=== PATIENT | female | born 1970 | race Caucasian/White ===

== ENCOUNTER 2017-01-22 12:30 | Observation (INO) | payer OTHER ==
[2017-01-22] VITALS (7 sets, daily range): BP systolic 138–159; BP diastolic 94–112; PULSE 79–84; RESP 16; TEMP 98; O2SAT 98–100
[~2017-01-22] VITALS: Ht 165.1 cm; Wt 98.6 kg
[~2017-01-22 12:30] MED LIST: LACTATED RINGER'S 1000 ML INJ 1,000 ML IV ONE; NEOSTIGMINE 3 MG/3 ML SYR IV ONE; ONDANSETRON HCL 4 MG/2 ML VIAL IV PUSH ONE; PROPOFOL 200 MG/20 ML AMP IV ONE
[2017-01-22 12:58] LABS: BLOOD, URINE LARGE (NEG); GLUCOSE,URINE NEG (NEG); KETONE, URINE NEG (NEG); NITRITE,URINE NEG (NEG)
[2017-01-22 13:01] LABS: METHOD OF COLLECTION CLEAN CATCH; URINE COLOR STRAW (YELLW/STRAW)
[2017-01-22 13:03] LABS: BACTERIA, URINE MOD /hpf; COMMENT (UR) CULTURE INDICATED; CULTURE IF INDICATED CULTURE INDICATED; SQUAMOUS EPITHELIAL CELL URINE > 8 /hpf (0-5); WBC, URINE 0-2 /hpf (0-5)
[2017-01-22] MEDS ORDERED: ONDANSETRON HCL 4 MG/2 ML VIAL IVP ONE (16:45)
[2017-01-22] MEDS ORDERED: SODIUM CHLOR 0.9% 1000 ML INJ 1,000 ML IV SCH (16:45)
[2017-01-22] MEDS ORDERED: MORPHINE SULFATE 4 MG/ML INJ IV PUSH ONE (16:45)
--- NOTE | 2017-01-22 16:50 | PD ---
HPI Chief Complaint: Abdominal Pain Time Seen by Provider: 16:39 Travel History International Travel<30 days: No Contact w/Intl Traveler<30days: No Traveled to known affect area: No History of Present Illness HPI 46yo F with PMH of left nephrectomy (kidney donation), presents to the ED with c/o RLQ abdominal pain since last night. States pain is constant, nonradiating, and throbbing. Pt had nonbloody diarrhea last night. +Nausea. Denies any fever, vomiting, chest pain, sob, vaginal discharge, dysuria, hematuria. Pt states her normal menstrual period started today. Last ate/ drank at 9am this morning. PFSH Past Medical History Medical History: Denies Significant Hx ?: Not LMP: 01/23/2016 Tubal Ligation: Yes Past Surgical History Section: Yes Genitourinary Surgery: Yes (DONATED LEFT KIDNEY) Social History Alcohol Use: Yes (WEEKENDS) Tobacco Use: No Allergies-Medications (Allergen,Severity, Reaction): Coded Allergies: No Known Allergies (Unverified , 01/22/17) Reported Meds & Prescriptions Reported Meds & Active Scripts Active No Active Prescriptions or Reported Medications Review of Systems Except as stated in HPI: all other systems reviewed are Neg Physical Exam Narrative GENERAL: 46yo F not in distress. SKIN: Warm and dry. HEAD: Atraumatic. Normocephalic. EYES: Pupils equal and round. No scleral icterus. No injection or drainage. ENT: No nasal bleeding or discharge. Mucous membranes pink and moist. NECK: Trachea midline. No JVD. CARDIOVASCULAR: Regular rate and rhythm. No murmur appreciated. RESPIRATORY: No accessory muscle use. Clear to auscultation. Breath sounds equal bilaterally. GASTROINTESTINAL: Abdomen soft, +TTP RLQ > RUQ. No rebound tenderness or guarding. PELVIC: +Blood in vaginal vault. No discharge. No CMT or adnexal tenderness bilaterally. BACK: No CVA tenderness bilaterally. MUSCULOSKELETAL: No obvious deformities. No clubbing. No cyanosis. No edema. NEUROLOGICAL: Awake and alert. No obvious cranial nerve deficits. Motor grossly within normal limits. Normal speech. PSYCHIATRIC: Appropriate mood and affect; insight and judgment normal. Data Data Last Documented VS Vital Signs Date Time Temp Pulse Resp B/P Pulse Ox O2 Delivery O2 Flow Rate FiO2 01/22/17 18:15 81 16 138/95 3/13/17 17:41 99 Room Air 01/22/17 12:34 98.0 Orders Urinalysis - C+S If Indicated (01/22/17 12:36) Urine Culture (01/22/17 12:40) Basic Metabolic Panel (Bmp) (01/22/17 16:45) Complete Blood Count With Diff (01/22/17 16:45) Lipase (01/22/17 16:45) Prothrombin Time / Inr (Pt) (01/22/17 16:45) Act Partial Throm Time (Ptt) (01/22/17 16:45) Ct Abd/Pel W Iv Contrast(Rout) (01/22/17 16:45) Iv Access Insert/Monitor (01/22/17 16:45) Ecg Monitoring (01/22/17 16:45) Oximetry (01/22/17 16:45) Morphine Inj (Morphine Inj) (01/22/17 16:45) Ondansetron Inj (Zofran Inj) (01/22/17 16:45) Sodium Chlor 0.9% 1000 Ml Inj (Ns 1000 M (01/22/17 16:45) Sodium Chloride 0.9% Flush (Ns Flush) (01/22/17 16:45) Ed Urine Pregnancytest Poc (01/22/17 16:45) Hepatic Functional Panel (01/22/17 16:45) Admit Order (Ed Use Only) (01/22/17 19:27) Piperacil-Tazo 3.375 Gm Premix (Zosyn 3. (01/22/17 19:30) Type And Screen (01/22/17 19:29) Labs Laboratory Tests Test 01/22/17 01/22/17 12:40 17:30 Urine Collection Type CLEAN CATCH Urine Color STRAW Urine Turbidity SLIGHT Urine pH 7.0 Urine Specific [place] 1.004 Urine Protein NEG mg/dL Urine Glucose (UA) NEG mg/dL Urine Ketones NEG mg/dL Urine Occult Blood LARGE Urine Nitrite NEG Urine Bilirubin NEG Urine Leukocyte Esterase NEG Urine RBC 4-9 /hpf Urine WBC 0-2 /hpf Urine Squamous Epithelial > 8 /hpf Cells Urine Amorphous Sediment FEW Urine Bacteria MOD /hpf Microscopic Urinalysis Comment CULTURE INDICATED Urine Collection Time 1240 White Blood Count 11.8 TH/MM3 Red Blood Count 4.90 MIL/MM3 Hemoglobin 14.2 GM/DL Hematocrit 41.6 % Mean Corpuscular Volume 85.0 FL Mean Corpuscular Hemoglobin 29.0 PG Mean Corpuscular Hemoglobin 34.1 % Concent Red Cell Distribution Width 12.2 % Platelet Count 227 TH/MM3 Mean Platelet Volume 8.0 FL Neutrophils (%) (Auto) 79.7 % Lymphocytes (%) (Auto) 10.3 % Monocytes (%) (Auto) 7.9 % Eosinophils (%) (Auto) 1.3 % Basophils (%) (Auto) 0.8 % Neutrophils # (Auto) 9.4 TH/MM3 Lymphocytes # (Auto) 1.2 TH/MM3 Monocytes # (Auto) 0.9 TH/MM3 Eosinophils # (Auto) 0.2 TH/MM3 Basophils # (Auto) 0.1 TH/MM3 CBC Comment DIFF FINAL Differential Comment Prothrombin Time 10.4 SEC Prothromb Time International 0.9 RATIO Ratio Activated Partial 28.2 SEC Thromboplast Time Sodium Level 139 MEQ/L Potassium Level 3.8 MEQ/L Chloride Level 102 MEQ/L Carbon Dioxide Level 28.3 MEQ/L Anion Gap 9 MEQ/L Blood Urea Nitrogen 11 MG/DL Creatinine 0.71 MG/DL Estimat Glomerular Filtration 88 ML/MIN Rate Random Glucose 87 MG/DL Calcium Level 8.8 MG/DL Total Bilirubin 0.5 MG/DL Direct Bilirubin 0.1 MG/DL Indirect Bilirubin 0.4 MG/DL Aspartate Amino Transf 16 U/L (AST/SGOT) Alanine Aminotransferase 19 U/L (ALT/SGPT) Alkaline Phosphatase 89 U/L Total Protein 7.7 GM/DL Albumin 3.5 GM/DL Lipase 247 U/L [facility] Medical Decision Making Medical Screen Exam Complete: Yes Emergency Medical Condition: Yes Interpretation(s) Laboratory Tests Test 01/22/17 01/22/17 12:40 17:30 Urine Collection Type CLEAN CATCH Urine Color STRAW (YELLW/STRAW) Urine Turbidity SLIGHT (CLEAR) Urine pH 7.0 (5.0-8.5) Urine Specific [place] 1.004 (1.002-1.035) Urine Protein NEG mg/dL (NEG-TRACE) Urine Glucose (UA) NEG mg/dL (NEG) Urine Ketones NEG mg/dL (NEG) Urine Occult Blood LARGE (NEG) Urine Nitrite NEG (NEG) Urine Bilirubin NEG (NEG) Urine Leukocyte Esterase NEG (NEG) Urine RBC 4-9 /hpf (0-3) Urine WBC 0-2 /hpf (0-5) Urine Squamous Epithelial > 8 /hpf (0-5) Cells Urine Amorphous Sediment FEW Urine Bacteria MOD /hpf (NONE) Microscopic Urinalysis Comment CULTURE INDICATED Urine Collection Time 1240 White Blood Count 11.8 TH/MM3 (4.0-11.0) Red Blood Count 4.90 MIL/MM3 (4.00-5.30) Hemoglobin 14.2 GM/DL (11.6-15.3) Hematocrit 41.6 % (35.0-46.0) Mean Corpuscular Volume 85.0 FL (80.0-100.0) Mean Corpuscular Hemoglobin 29.0 PG (27.0-34.0) Mean Corpuscular Hemoglobin 34.1 % Concent (32.0-36.0) Red Cell Distribution Width 12.2 % (11.6-17.2) Platelet Count 227 TH/MM3 (150-450) Mean Platelet Volume 8.0 FL (7.0-11.0) Neutrophils (%) (Auto) 79.7 % (16.0-70.0) Lymphocytes (%) (Auto) 10.3 % (9.0-44.0) Monocytes (%) (Auto) 7.9 % (0.0-8.0) Eosinophils (%) (Auto) 1.3 % (0.0-4.0) Basophils (%) (Auto) 0.8 % (0.0-2.0) Neutrophils # (Auto) 9.4 TH/MM3 (1.8-7.7) Lymphocytes # (Auto) 1.2 TH/MM3 (1.0-4.8) Monocytes # (Auto) 0.9 TH/MM3 (0-0.9) Eosinophils # (Auto) 0.2 TH/MM3 (0-0.4) Basophils # (Auto) 0.1 TH/MM3 (0-0.2) CBC Comment DIFF FINAL Differential Comment Prothrombin Time 10.4 SEC (9.8-11.6) Prothromb Time International 0.9 RATIO Ratio Activated Partial 28.2 SEC Thromboplast Time (24.3-30.1) Sodium Level 139 MEQ/L (136-145) Potassium Level 3.8 MEQ/L (3.5-5.1) Chloride Level 102 MEQ/L (98-107) Carbon Dioxide Level 28.3 MEQ/L (21.0-32.0) Anion Gap 9 MEQ/L (5-15) Blood Urea Nitrogen 11 MG/DL (7-18) Creatinine 0.71 MG/DL (0.50-1.00) Estimat Glomerular Filtration 88 ML/MIN (>89) Rate Random Glucose 87 MG/DL (74-106) Calcium Level 8.8 MG/DL (8.5-10.1) Total Bilirubin 0.5 MG/DL (0.2-1.0) Direct Bilirubin 0.1 MG/DL (0.0-0.2) Indirect Bilirubin 0.4 MG/DL (0.0-0.8) Aspartate Amino Transf 16 U/L (15-37) (AST/SGOT) Alanine Aminotransferase 19 U/L (10-53) (ALT/SGPT) Alkaline Phosphatase 89 U/L (45-117) Total Protein 7.7 GM/DL (6.4-8.2) Albumin 3.5 GM/DL (3.4-5.0) Lipase 247 U/L (73-393) Last Impressions Abdomen/Pelvis CT 01/22/17 1645 Signed Impressions: Service Date/Time: Sunday, January 22, 2017 18:33 - CONCLUSION: Acute appendicitis. Jakob Capone MD Differential Diagnosis Acute appendicitis vs. acute cholecystitis vs. cystitis Narrative Course 46yo F with RLQ abdominal pain. Labs reviewed, mild leukocytosis at 11.8. Normal lipase. LFTs normal. UA showed large blood. Urine squamous epithelial cells is more than 8 and urine WBC is only 0-2. I believe this is contamination as pt has no urinary complaints. I am still concern about appendicitis so will obtain CTa/p. CTa/p showed acute appendicitis. Discussed with general surgeon Dr. Richardson and we will transfer to the main [facility] now. Accepted under his care. IV zosyn given. Pt is to stay NPO and go to the OR. Diagnosis Primary Impression: Acute appendicitis Qualified Code: K35.80 - Acute appendicitis, unspecified acute appendicitis type Admitting Information Admitting Physician Requests: Admit Scripts No Active Prescriptions or Reported Meds Awilda Jennings DO Jan 22, 2017 16:49
[2017-01-22] MEDS: SODIUM CHLORIDE 0.9% FLUSH 5 ML FLUSH IVF PRN ×2 (17:37→20:06)
[2017-01-22 17:57] LABS: AUTOMATED NEUTROPHIL # 9.4 TH/MM3 (1.8-7.7); BASOPHIL # 0.1 TH/MM3 (0-0.2); BASOPHIL % 0.8 % (0.0-2.0); EOSINOPHIL # 0.2 TH/MM3 (0-0.4); EOSINOPHIL % 1.3 % (0.0-4.0); HEMATOCRIT 41.6 % (35.0-46.0); HEMO FLAGS DIFF FINAL; LYMPH % 10.3 % (9.0-44.0); LYMPHOCYTE # 1.2 TH/MM3 (1.0-4.8); MEAN CORPUSCULAR HGB CONC 34.1 % (32.0-36.0); MONO % 7.9 % (0.0-8.0); NEUT % 79.7 % (16.0-70.0); PLATELET COUNT 227 TH/MM3 (150-450); RED CELL DISTRIBUTION WIDTH 12.2 % (11.6-17.2); WHITE BLOOD COUNT 11.8 TH/MM3 (4.0-11.0)
[2017-01-22 18:03] LABS: POTASSIUM 3.8 MEQ/L (3.5-5.1)
[2017-01-22 18:06] LABS: BICARBONATE 28.3 MEQ/L (21.0-32.0)
[2017-01-22 18:08] LABS: APTT (PATIENT) 28.2 SEC (24.3-30.1); INTERNATIONAL NORMALIZED RATIO 0.9 RATIO; PROTHROMBIN TIME - PATIENT 10.4 SEC (9.8-11.6)
[2017-01-22 18:11] LABS: TOTAL BILIRUBIN ADULT 0.5 MG/DL (0.2-1.0)
[2017-01-22 18:16] LABS: INDIRECT BILIRUBIN 0.4 MG/DL (0.0-0.8)
--- NOTE | 2017-01-22 19:09 | RADHPO ---
EXAM DATE/TIME: 01/22/2017 18:33 [facility] COMPARISON: No previous studies available for comparison. INDICATIONS : Lower right abdomen pain. IV CONTRAST: 65 cc Omnipaque 350 (iohexol) IV ORAL CONTRAST: No oral contrast ingested. RADIATION DOSE: 20.84 CTDIvol (mGy) MEDICAL HISTORY : None SURGICAL HISTORY : Tubal ligation. One kidney ENCOUNTER: Initial ACUITY: 3 days PAIN SCALE: 5/10 LOCATION: abdomen TECHNIQUE: Volumetric scanning of the abdomen and pelvis was performed. Using automated exposure control and ad justment of the mA and/or kV according to patient size, radiation dose was kept as low as reasonably achievable to obtain optimal diagnostic quality images. FINDINGS: LOWER LUNGS: The visualized lower lungs are clear. LIVER: Homogeneous density without lesion. There is no dilation of the biliary tree. No calcified gallston es. SPLEEN: Normal size without lesion. PANCREAS: Within normal limits. KIDNEYS: Single right kidney with compensatory hypertrophy. No hydronephrosis. ADRENAL GLANDS: Within normal limits. VASCULAR: There is no aortic aneurysm. BOWEL/MESENTERY: The appendix appears to be dilated at 1.5 cm surrounded by inflammatory changes characteristic of suzanne endicitis. No loculated fluid collections are seen at this time to indicate abscess. ABDOMINAL WALL: Within normal limits. RETROPERITONEUM: There is no lymphadenopathy. BLADDER: No wall thickening or mass. REPRODUCTIVE: Within normal limits. INGUINAL: There is no lymphadenopathy or hernia. MUSCULOSKELETAL: Within normal limits for patient age. CONCLUSION: Acute appendicitis. Jakob Capone MD on January 22, 2017 at 19:05 Board Certified Radiologist. This report was verified electronically.
[2017-01-22] MEDS ORDERED: PIPERACIL-TAZO 3.375 GM PREMIX 50 ML IV ONE (19:30)
[2017-01-22] MEDS ORDERED: D5-1/2 NS + KCL 20 MEQ INJ 1,000 ML IV SCH (19:45)
[2017-01-22] MEDS ORDERED: MIDAZOLAM HCL 2 MG/2 ML VIAL ONE (21:12)
[2017-01-22] MEDS ORDERED: ACETAMINOPHEN 1000 MG/100 ML VIAL IV ONE (21:12)
[2017-01-22] MEDS ORDERED: FAMOTIDINE 20 MG/2 ML VIAL ONE (21:12)
[2017-01-22] MEDS ORDERED: BUPIVACAINE/EPINEPHRINE 0.5% PF 30 ML VIAL ONE (21:38)
--- NOTE | 2017-01-22 22:11 | HHI.PR ---
Immediate Post Op Note Procedure Date: Jan 22, 2017 Pre Op Diagnosis: acute appendicitis Post Op Diagnosis: same Surgeon: Sudarshan Richardson MD Spot Worker(s): see or sheet Procedure: lap appy Findings: distended appendix Complications: none Specimen(s) removed: appendix Estimated blood loss: 5cc Anesthesia: General Drains: None IVF (100) Patient to: PACU Patient Condition: Good Sudarshan Richardson MD Jan 22, 2017 22:11
[2017-01-22] MEDS ORDERED: ONDANSETRON HCL 4 MG/2 ML VIAL IV PRN (22:15)
[2017-01-22] MEDS: DOCUSATE SODIUM 100 MG CAP PO SCH (22:15)
[2017-01-22] MEDS ORDERED: Post-op Orders (for Pharmacy) MISC XX ONE (22:15)
[2017-01-22] MEDS ORDERED: HYDROmorphone HCL PF 1 MG/ML VIAL IV PRN (22:15)
[2017-01-22] MEDS ORDERED: SODIUM CHLORIDE 0.9% FLUSH 5 ML FLUSH IVF PRN (22:15)
[2017-01-22] MEDS ORDERED: ACETAMINOPHEN/HYDROcodone 325 MG/5 MG TAB PO PRN ×2 (22:15)
[2017-01-22] MEDS ORDERED: DO NOT ADM ANY ANTICOAGULANT DRUGS XX PRN (22:22)
[2017-01-22] MEDS: SODIUM CHLORIDE 0.9% FLUSH 5 ML FLUSH IVF SCH (22:30)
[2017-01-22] MEDS: LACTATED RINGER'S 1000 ML INJ 1,000 ML IV SCH (22:45)
[2017-01-22] MEDS ORDERED: KETOROLAC TROMETHAMINE 30 MG/ML (IVP) VIAL IV PUSH ONE (22:48)
[2017-01-22] MEDS ORDERED: KETOROLAC TROMETHAMINE 30 MG/ML (IVP) VIAL ONE (22:51)
[2017-01-22] MEDS ORDERED: IOHEXOL 350 MG/ML 10 ML VIAL (for RAD DIAG) IV ONE (23:06)
[2017-01-23] VITALS: BP 130/83; PULSE 66; RESP 18; TEMP 97.1; O2SAT 100
[2017-01-23] MEDS: metroNIDAZOLE 500 MG INJ 100 ML IV SCH ×3 (00:28→15:41)
[2017-01-23] MEDS ORDERED: MORPHINE SULFATE 4 MG/ML INJ ONE (01:23)
[2017-01-23 04:00] VITALS: BP 126/78; PULSE 74; RESP 18; TEMP 97.3; O2SAT 97
[2017-01-23 05:38] LABS: AUTOMATED NEUTROPHIL # 9.4 TH/MM3 (1.8-7.7); BASOPHIL % 0.2 % (0.0-2.0); HEMATOCRIT 35.8 % (35.0-46.0); HEMO FLAGS DIFF FINAL; LYMPH % 4.4 % (9.0-44.0); LYMPHOCYTE # 0.4 TH/MM3 (1.0-4.8); MEAN CELL VOLUME 84.4 FL (80.0-100.0); MEAN CORPUSCULAR HEMOGLOBIN 29.7 PG (27.0-34.0); MEAN CORPUSCULAR HGB CONC 35.2 % (32.0-36.0); NEUT % 93.4 % (16.0-70.0); PLATELET COUNT 177 TH/MM3 (150-450); RED BLOOD COUNT 4.24 MIL/MM3 (4.00-5.30); RED CELL DISTRIBUTION WIDTH 13.3 % (11.6-17.2); WHITE BLOOD COUNT 10.1 TH/MM3 (4.0-11.0)
[2017-01-23 06:03] LABS: BICARBONATE 25.9 MEQ/L (21.0-32.0)
[2017-01-23] MEDS: DOCUSATE SODIUM 100 MG CAP PO SCH (07:53)
[2017-01-23] MEDS: LACTATED RINGER'S 1000 ML INJ 1,000 ML IV SCH (07:55)
[2017-01-23] MEDS: SODIUM CHLORIDE 0.9% FLUSH 5 ML FLUSH IVF SCH (07:57)
[2017-01-23 08:00] VITALS: BP 130/90; PULSE 65; RESP 19; TEMP 96.9; O2SAT 97
--- NOTE | 2017-01-23 09:30 | MH ---
cc: FIORELLA JUAREZ MD DATE OF ADMISSION: 01/22/2017 CHIEF COMPLAINT Abdominal pain, appendicitis. HISTORY OF PRESENT ILLNESS The patient is a 46-year-old female who presented with onset of 24-hour history of periumbilical right-sided pain. She states the pain started suddenly and continued to progress. The pain was 7/10, currently 8/10, sharp, radiation to the right lower quadrant, constant. Some improvement with pain medication, worse with movement. She had associated nausea, no vomiting. Denies diarrhea or constipation. She came to the emergency department with further workup including CT scan showing concern for acute appendicitis. Surgical consultation obtained. To my evaluation, the patient is resting comfortably, stating she has continued pain. She denies any fevers or chills. She has never had pain quite like this in her life. PAST MEDICAL HISTORY Kidney donation. Left nephrectomy. Otherwise healthy. PAST SURGICAL HISTORY . Left nephrectomy. SOCIAL HISTORY Occasional ETOH. Denies smoking or IVDA. ALLERGIES The patient has no known medication allergies. FAMILY HISTORY Denies diabetes or hypertension. MEDICATIONS The patient is on no medications. REVIEW OF SYSTEMS GENERAL: The patient denies fevers or headache. HEENT: Denies eye pain, ear pain. NECK: Denies swelling or pain. RESPIRATORY: Denies cough or wheeze. CARDIAC: Denies palpitations or chest pain. ABDOMEN: Denies vomiting. Complained of nausea and pain. EXTREMITIES: Denies arthralgias, myalgias. : Denies dysuria, hematuria. ENDOCRINE: Denies polyuria, polydipsia. NEUROLOGIC: Denies numbness or tingling. PSYCH: Denies altered sensorium or in change. INTEGUMENT: Denies new masses or lesions. PHYSICAL EXAMINATION GENERAL: The patient in no acute distress. VITAL SIGNS: Temperature 97.8. Pulse 101, respirations 14, blood pressure 132/89, saturation 100% on 3 liters. HEENT: PERRLA. The pupils are equal, reactive. Normocephalic, atraumatic. Moist mucous membranes. NECK: Supple. Trachea midline. LUNGS: Clear to auscultation bilaterally. No wheeze. HEART: S1-S2. Regular rhythm. ABDOMEN: Soft. Positive tenderness to palpation right lower quadrant. Positive localized rebound. A well-healed surgical scar. EXTREMITIES: Warm, well-perfused. : Within normal limits. INTEGUMENT: No obvious masses or lesions. NEUROLOGIC: GCS of 15. 5/5 motor all extremities. PSYCH: Good insight, good judgment. LABORATORY AND DIAGNOSTIC DATA WBC 11.8, hemoglobin 14.2, hematocrit 41.6, platelet count 227. Sodium 139, potassium 3.8, chloride 102, BUN 11, creatinine 0.71, calcium 8.8, AST 16, ALT 19, alk phos 89, lipase 247. INR 0.9, PT 10.4, PTT 28.2. CT ABDOMEN AND PELVIS Reviewed by myself. Distended appendix with stranding and induration right lower quadrant consistent with acute appendicitis. PLAN After a full clinical, radiologic and laboratory workup, the patient with above-named issue including acute appendicitis. We will admit the patient to the hospital, IV fluids, n.p.o., IV antibiotics, pain control. The patient will be taken emergently to the operating room for laparoscopic appendectomy, possible open. This was discussed with the patient in detail. The patient stated understanding, agreed and would like to proceed. MD BOAZ Lama/YOLANDA /3:32 AM /8:20 AM
[2017-01-23 12:10] VITALS: BP 124/83; PULSE 67; RESP 20; TEMP 96.4; O2SAT 97
--- NOTE | 2017-01-23 13:27 | HHI.DS ---
Discharge Summary Admission Date Jan 22, 2017 at 19:30 Discharge Date: Jan 23, 2017 Admitting Diagnosis Acute appendicitis Brief History 46-year-old female with acute appendicitis. CBC/BMP: 01/23/17 0522 01/23/17 05 Significant Findings Laboratory Tests Test 01/22/17 01/22/17 01/23/17 12:40 17:30 05:22 Urine Occult Blood LARGE (NEG) Urine RBC 4-9 /hpf (0-3) Urine Squamous Epithelial > 8 /hpf (0-5) Cells Urine Bacteria MOD /hpf (NONE) White Blood Count 11.8 TH/MM3 (4.0-11.0) Neutrophils (%) (Auto) 79.7 % 93.4 % (16.0-70.0) (16.0-70.0) Neutrophils # (Auto) 9.4 TH/MM3 9.4 TH/MM3 (1.8-7.7) (1.8-7.7) Estimat Glomerular Filtration 88 ML/MIN (>89) 81 ML/MIN (>89) Rate Lymphocytes (%) (Auto) 4.4 % (9.0-44.0) Lymphocytes # (Auto) 0.4 TH/MM3 (1.0-4.8) Random Glucose 144 MG/DL (74-106) Calcium Level 7.6 MG/DL (8.5-10.1) PE at Discharge Alert awake Cardio: RRR Respiratory:CTAB Abdomen: Lab sites clean dry and intact; mild tenderness at incision sites; nondistended Hospital Course This is a 46-year-old female with acute appendicitis. The patient was taken to the operating room for laparoscopic appendectomy with Dr. Richardson. The patient tolerated the procedure well. The patient was able to tolerate regular diet. The patient's pain was controlled using oral pain medications. The patient was instructed on post operative instructions about showering. The patient will follow-up with Dr. Richardson in about 10-14 days. Pt Condition on Discharge: Good Discharge Disposition: Discharge Home Discharge Instructions DIET: Follow Instructions for: As Tolerated, No Restrictions Aaliyah Arora Jan 23, 2017 13:26
[2017-01-23 16:12] VITALS: BP 161/95; PULSE 71; RESP 20; TEMP 98.2; O2SAT 98
[2017-01-23] MEDS ORDERED: NORC5TAB PO (17:35)
--- NOTE | 2017-01-25 08:09 | MP ---
cc: FIORELLA RICHARDSON MD DATE OF SURGERY 01/22/2017 PREOPERATIVE DIAGNOSIS Acute appendicitis. POSTOPERATIVE DIAGNOSIS Acute appendicitis. PROCEDURE PERFORMED Laparoscopic appendectomy. SURGEON Dr. Fiorella Richardson DELIVERY MGR See OR sheet ANESTHESIA GETA IV FLUIDS 1000 cc. ESTIMATED BLOOD LOSS 5 cc. DRAINS None. COMPLICATIONS None. WOUND CLASSIFICATION Dirty. FINDINGS Distended, inflamed appendix. No evidence of perforation. SPECIMENS Appendix sent for pathology. INDICATION The patient is a 46-year-old female who presents with acute onset right lower quadrant pain, CT findings with acute appendicitis. Therefore decision was made for operative intervention including laparoscopic appendectomy. DETAILS OF PROCEDURE The patient was taken to the operating suite, placed in supine position. She was prepped and draped in the usual sterile fashion after induction of general endotracheal anesthesia. Brief time-out was done stating correct patient, procedure surgical site. We were all in agreement with this. Attention was first directed to the umbilicus. A small stab coleen incision made with an 11 blade. Veress needle was placed intraabdominally, the abdomen insufflated to 50-mm pneumoperitoneum. The Veress needle was exchanged for a 5-mm endoscope and trocar. After cursory inspection, no evidence of injury, two other ports placed, one suprapubic 5-mm, followed by at 12-mm lower quadrant port. The patient was then placed in Trendelenburg and airplaned to the left. The appendix was identified, noted be indurated and somewhat stuck to the peritoneal sidewall. [place] grasper was used to dissect the appendix away along with electro Bovie cautery. The appendix was mobilized. A small window was made in the base of the mesoappendix. A 35 Endo-BARBARA was obtained and transected the appendiceal base. Again, further adhesions mobilized. The mesoappendix was also transected with a 35-mm Endo-BARBARA stapler. The appendix was placed in an EndoCatch bag and this was removed from the abdomen through the left lower quadrant trocar. Suction irrigation was used until effluent was clear. Minimal bleeding on staple line cauterized and a small piece of Surgicel also placed. Next, when we were satisfied with this, the abdomen was desufflated. Trocars were removed. Khalif-Pippa prior to desufflation was used to approximate the left lower quadrant fascial layer. The ports were closed with 4-0 Monocryl subcuticular suture. Local anesthetic injected at port sites. The patient tolerated the procedure well. There was no intraoperative complication. The patient was extubated and taken stable to the PACU. All lap and instrument counts were correct at the end of the procedure. Lars MD BOAZ James/YOLANDA /3:40 AM /6:56 AM
== END 2017-01-23 17:59 | disposition home or self-care (01) ==
LOC: PHED 12:30 → INTOOBSV 19:30 → PHEDA 19:30 → HPAC 20:50 → N07B 23:15
PROVIDERS: ADMIT Surgery; ATTEND Surgery
DX: K35.80 Unspecified acute appendicitis (principal); R19.7 Diarrhea, unspecified; R11.0 Nausea
CPT/HCPCS: 00840; 44970; 74177; 80048; 80076; 81001; 83690; 84703; 85025; 85610; 85730; 86850; 86900; 86901; 87086; 88304; 94150; 96361; 96374; 99285; G0378; J0131; J0690; J2250; J2270; J2405; J2543; J2710; J3010; J3480; J7030; J7120; Q9967; J1885